=== PATIENT | female | born 1955 | race Caucasian/White ===

== ENCOUNTER 2024-02-05 20:31 | Emergency (ER) | payer MEDICARE, SELFPAY ==
[2024-02-05 20:42] VITALS: BP 208/104
[2024-02-05 21:08] LABS: % Basophils 0.7 % (0-2); % Eosinophils 1.2 % (0-6); % Immature Granulocytes 0.3 % (0-0.5); % Lymphocytes 49.1 % (20.5-51.1); % Neutrophils 39.7 % (42.2-75.2); Absolute Basophils 0.1 10^3/uL (0-0.2); Absolute Eosinophils 0.1 10^3/uL (0-0.7); Absolute Lymphocytes 5.3 10^3/uL (1.2-3.4); Absolute Neutrophils 4.3 10^3/uL (1.4-6.5); Hematocrit 34.8 % (37.0-47.0); Hemoglobin 12.4 g/dL (12.0-16.0); Mean Corp Hgb Conc. 35.6 g/dL (33.0-37.0); Mean Corpuscular Hgb 31.6 pg (27.0-31.0); Mean Corpuscular Volume 88.8 fL (81.0-99.0); Nucleated Red Blood Cells % 0 %; Platelet Count 272 10^3/uL (130-400); Red Blood Cell Count 3.92 10^6/uL (4.20-5.40); Red Cell Dist. Width 12.3 % (11.5-14.5); White Blood Cell Count 10.8 10^3/uL (4.8-10.8)
[2024-02-05 21:28] LABS: ALT (SGPT) 37 U/L (0-35); AST (SGOT) 26 U/L (14-36); Albumin 4.5 g/dl (3.5-5.0); Alkaline Phosphatase 62 U/L (38-126); Blood Urea Nitrogen 20 mg/dl (7-17); Carbon Dioxide 26 mmol/L (22-30); Glucose 105 mg/dl (70-99); Potassium 4.3 mmol/L (3.5-5.1); Sodium 130 mmol/L (135-145); Total Protein 7.5 g/dl (6.3-8.2); eGFR > 60.00
[2024-02-05 21:33] LABS: Troponin I < 0.012 ng/ml
[2024-02-05 21:36] LABS: Chloride 95 mmol/L (98-107); Total Bilirubin 0.8 mg/dl (0.2-1.3)
[2024-02-06 01:59] VITALS: BP 169/92
[2024-02-06 05:41] VITALS: BP 164/81
[2024-02-06] MEDS: LOPRESSOR 75 MG PO (06:49)
--- NOTE | 2024-02-06 06:49 | ED.GENMED ---
History of Present Illness
General
Chief Complaint: Blood Pressure Problem
Source: patient and spouse
Time Seen by Provider: 02/06/24 06:35
Travel History
Have you had any contact with someone who has COVID-19?: No
Do you have any symptoms of coronavirus? Fever > 100 degrees, chills, cough, shortness of breath, sore throat, loss of taste or smell, muscle aches, or headache?: No
History of Present Illness
History of Present Illness:
68-year-old female presents to the emergency room complaining of high blood pressure. Her blood pressure has been elevated over the past couple weeks. Yesterday she took it and it was in the 190s. She believes that he has more sinus congestion
and runny nose when her blood pressure is elevated. She is able to perform her normal daily activities including fairly significant exercise. She denies any chest pain or shortness of breath. Patient is prescribed medication for hypertension
including metoprolol 50 mg in the morning as well as amlodipine 5 mg in the evening.
Phy Exam
Physical Exam
Physical Exam:
General: Awake, Alert, Oriented X3. No acute distress.
Vitals: Moderately hypertensive
Head: Atraumatic
Eyes: Pupils equal, EOMI
Throat: Airway intact, no exudates
Neck: Trachea midline
Lungs: Clear and equal b/l
Heart: Regular rate, no murmurs
Abd: Soft, Nontender, No pulsatile mass
Neuro: Nonfocal
Skin: Warm, dry, no rash
Extremities: pulses equal b/l, no edema
Course
Orders/Labs/Results
Orders:
Orders
02/05/24 20:47
EKG [Electrocardiogram (*1)] Urgent
Reason for Study: Hypertension, Benign
02/05/24 20:48
EKG- Treatment ONCE
02/05/24 21:01
Complete Blood Count/With Diff Urgent
Comprehensive Metabolic Panel Urgent
Troponin I Urgent
02/06/24 06:36
Metoprolol [Lopressor] 75 mg PO NOW STA
02/06/24 07:36
Osmolality, Random Urine Urgent
Date Specimen was Collected: 02/06/24
Time Specimen was Collected: 06:55
Urinalysis Urgent
Date Specimen was Collected: 02/06/24
Time Specimen was Collected: 06:53
Urine Sodium Urgent
Date Specimen was Collected: 02/06/24
Time Specimen was Collected: 06:55
Abnormal Lab Results
02/05/24 02/06/24
21:01 07:36
RBC 3.92 L 10^6/uL
(4.20-5.40)
Hct 34.8 L %
(37.0-47.0)
MCH 31.6 H pg
(27.0-31.0)
Absolute Lymphs (auto) 5.3 H 10^3/uL
(1.2-3.4)
Absolute Monos (auto) 1.0 H 10^3/uL
(0.1-0.6)
Neutrophils % 39.7 L %
(42.2-75.2)
Sodium 130 L mmol/L
(135-145)
Chloride 95 L mmol/L
(98-107)
BUN 20 H mg/dl
(7-17)
Glucose 105 H mg/dl
(70-99)
ALT 37 H U/L
(0-35)
Urine Osmolality 290 L mOsm/kg
(300-900)
02/05/24 21:01
02/05/24 21:01
Vital Signs
Initial and Last Documented VS:
Initial Vital Signs
Temp Pulse Resp BP Pulse Ox
97.7 F 70 16 208/104 99
02/05/24 20:42 02/05/24 20:42 02/05/24 20:42 02/05/24 20:42 02/05/24 20:42
Last Documented Vital Signs
Temp Pulse Resp BP Pulse Ox
97.5 F 65 16 157/90 100
02/06/24 01:59 02/06/24 06:54 02/06/24 06:54 02/06/24 09:07 02/06/24 06:54
MDM/Problems Addressed
Differential Diagnosis Includes:
uncontrolled hypertension, medication side effect, hypertensive emergency
MDM/Problems Addressed:
Patient presents with elevated blood pressure. At the time my evaluation her blood pressure has improved. Labs showed no concerning findings. Her sodium was mildly low at 130 though she endorses increased fluid intake. Patient's elevated blood
pressure may be due to simply progression of essential hypertension. Patient also recently on a course of steroids which may have exacerbated her blood pressure Given workup here is unremarkable we will increase her metoprolol to 75 mg a day.
Patient instructed to take 1-1/2 tablets in the morning and also take her typical dose of amlodipine in the evening. Patient will follow with her primary care doctor and she does have an appointment for this next week. Patient very anxious better
blood pressure and I have also asked her to take her blood pressure only once or perhaps twice a day and no more.
Chronic conditions affecting care: HTN
*Pulse Oximetry
Patient hypoxic: no
*EKG
Interpreted by ED Provider?: Yes
Interpretation: normal
Heart Rate: 72
Rate: normal
Rhythm: sinus
[place]: normal axis
Interval: normal interval
QRS Pattern: normal QRS
Ischemia: no ischemia
*Silverware [employer]er Interpretation
Rate: normal
Interpretation: normal
Rhythm: sinus
*Critical Care Note
Total Time (30-74mins, 75-104mins- exclusive of procedures): Not Applicable
ED Attending Note
-
Portions of this chart may have been created with voice recognition software.� Occasional wrong word or��sound alike� substitutions may have occurred due to the inherent limitations of voice recognition software.
Discharge Plan
Departure
Patient Disposition: Home (Routine Discharge)
Patient with high blood pressure during this ER visit?: Yes
Condition: Good
Discharge Problem:
Hypertension
Instructions: High Blood Pressure (DC)
Prescriptions:
No Action
dicyclomine 20 mg tablet
20 mg PO BID PRN (Reason: abdominal pain) Qty: 20 0RF
Referrals:
Pedro Babcock, DO [Family Provider] -
Activity Restrictions/Additional Instructions:
Increase metoprolol to 75mg in the morning. Follow up with your primary care provider as scheduled. Take you blood pressure once a day.
Interventions
Interventions:
*Risk Screen - Suicide Last Done: 02/05/24 20:42
*General Assessment Last Done: 02/05/24 20:42
*Neglect/Abuse Screening Last Done: 02/06/24 09:17
ED- Fall Risk Assessment Last Done: 02/06/24 05:50
*ED COVID-19 Vaccine History Last Done: 02/05/24 20:42
*Nursing Disposition Last Done: 02/06/24 09:17
ED- Cardiac Assessment Last Done: 02/06/24 05:50
ED- Neurological Assessment Last Done: 02/06/24 05:50
ED- Pulmonary Assessment Last Done: 02/06/24 05:50
Discharge Date and Time
Discharge Date/Time: 02/06/24 09:18
Print Language: DANISH
[2024-02-06 06:54] VITALS: BP 155/80
[2024-02-06 07:43] LABS: Urine Albumin Negative (Neg - Trace); Urine Bilirubin Negative (Negative); Urine Character Clear (Clear); Urine Color Yellow; Urine Glucose Negative (Negative); Urine Ketone Negative (Negative); Urine Leukocyte Negative (Negative); Urine Nitrite Negative (Negative); Urine Occult Blood Negative (Negative); Urine Specific Gravity 1.005 (<1.030); Urine Urobilinogen Negative (Neg - 1+)
[2024-02-06 08:54] LABS: Urine Sodium 87 mmol/L (30-90)
[2024-02-06 09:07] VITALS: BP 157/90
[2024-02-06 09:14] LABS: Osmolality Urine 290 mOsm/kg (300-900)
== END 2024-02-06 09:18 | disposition home or self-care (01) ==
LOC: EMR 20:31
PROVIDERS: Emergency Medicine; EMERGENCY PHYSICIAN Emergency Medicine; FAMILY PHYSICIAN Family Medicine
DX: I10 Essential (primary) hypertension (principal); R09.81 Nasal congestion; R09.89 Other specified symptoms and signs involving the circulatory and respiratory systems
CPT/HCPCS: 99283; 80053; 81003; 83935; 84300; 84484; 85025; 93005

== ENCOUNTER → 2024-04-15 10:37 | Outpatient (REF) | payer MEDICARE, SELFPAY | LOC: HWRCS 10:37 | PROVIDERS: ATTENDING PHYSICIAN Nuclear Medicine Nuclear Cardiology; FAMILY PHYSICIAN Family Medicine | DX: R94.31 Abnormal electrocardiogram [ECG] [EKG] (principal) | CPT/HCPCS: 93306 ==

== ENCOUNTER → 2024-10-08 08:31 | Outpatient (REF) | payer MEDICARE, SELFPAY | LOC: HWWDC 08:31 | PROVIDERS: ATTENDING PHYSICIAN Family Medicine | DX: M81.0 Age-related osteoporosis without current pathological fracture (principal); Z12.31 Encounter for screening mammogram for malignant neoplasm of breast | CPT/HCPCS: 77063; 77067; 77080 ==

== ENCOUNTER → 2024-12-09 08:00 | Outpatient (REF) | payer MEDICARE, SELFPAY ==
[2024-12-09 09:53] LABS: % Basophils 0.8 % (0-2); % Eosinophils 3.2 % (0-6); % Immature Granulocytes 0.2 % (0-0.5); % Monocytes 9.2 % (1.7-9.3); % Neutrophils 46.6 % (42.2-75.2); Absolute Basophils 0.1 10^3/uL (0-0.2); Absolute Eosinophils 0.3 10^3/uL (0-0.7); Absolute Lymphocytes 3.8 10^3/uL (1.2-3.4); Absolute Monocytes 0.9 10^3/uL (0.1-0.6); Absolute Neutrophils 4.4 10^3/uL (1.4-6.5); Mean Corp Hgb Conc. 34.2 g/dL (33.0-37.0); Mean Corpuscular Hgb 32.1 pg (27.0-31.0); Mean Corpuscular Volume 93.8 fL (81.0-99.0); Mean Platelet Volume 10.9 fL (7.4-10.4); Nucleated Red Blood Cells % 0 %; Platelet Count 262 10^3/uL (130-400); Red Blood Cell Count 4.05 10^6/uL (4.20-5.40); Red Cell Dist. Width 12.5 % (11.5-14.5); White Blood Cell Count 9.5 10^3/uL (4.8-10.8)
[2024-12-09 09:57] LABS: ALT (SGPT) 24 U/L (0-35); AST (SGOT) 27 U/L (14-36); Albumin 4.5 g/dl (3.5-5.0); Alkaline Phosphatase 64 U/L (38-126); Blood Urea Nitrogen 17 mg/dl (7-17); Calcium 9.6 mg/dl (8.4-10.2); Carbon Dioxide 26 mmol/L (22-30); Chloride 107 mmol/L (98-107); Glucose 106 mg/dl (70-99); Potassium 4.6 mmol/L (3.5-5.1); Sodium 141 mmol/L (135-145); Total Bilirubin 0.9 mg/dl (0.2-1.3); Total Protein 7.5 g/dl (6.3-8.2); eGFR > 60.00
[2024-12-09 10:12] LABS: IgA 279 mg/dl (70-400)
[2024-12-10 10:26] LABS: Intact PTH 31.1 pg/ml (13.6-85.8)
[2024-12-10 15:47] LABS: Endomysial IgA Antibody Titer <1:10 (<1:10)
[2024-12-10 18:19] LABS: tTG IgA Antibody <1.02 FLU (0.00-4.99)
[2024-12-11 09:30] LABS: Albumin 4.19 g/dL (3.75-5.01); Alpha 1 Globulin 0.23 g/dL (0.19-0.46); Alpha 2 Globulin 0.76 g/dL (0.48-1.05); SPEP IFE Reflex Not Done; Total Protein-Electrophoresis 7.3 g/dL (6.3-8.2)
== END ==
LOC: HWLAB 08:00
PROVIDERS: ATTENDING PHYSICIAN Student in an Organized Health Care Education/Training Program; FAMILY PHYSICIAN Family Medicine
DX: M81.0 Age-related osteoporosis without current pathological fracture (principal); I10 Essential (primary) hypertension
CPT/HCPCS: 36415; 80053; 82784; 83516; 83970; 84155; 84165; 85025; 86231

== ENCOUNTER → 2024-12-26 07:52 | Outpatient (REF) | payer MEDICARE, SELFPAY ==
[2024-12-26 09:51] LABS: % Basophils 0.5 % (0-2); % Immature Granulocytes 0.1 % (0-0.5); % Lymphocytes 44.2 % (20.5-51.1); % Monocytes 9.2 % (1.7-9.3); Absolute Eosinophils 0.2 10^3/uL (0-0.7); Absolute Lymphocytes 3.6 10^3/uL (1.2-3.4); Absolute Monocytes 0.7 10^3/uL (0.1-0.6); Absolute Neutrophils 3.5 10^3/uL (1.4-6.5); Hematocrit 37.9 % (37.0-47.0); Hemoglobin 13.1 g/dL (12.0-16.0); Mean Corp Hgb Conc. 34.6 g/dL (33.0-37.0); Mean Corpuscular Hgb 32.2 pg (27.0-31.0); Mean Corpuscular Volume 93.1 fL (81.0-99.0); Nucleated Red Blood Cells % 0 %; Platelet Count 238 10^3/uL (130-400); Red Blood Cell Count 4.07 10^6/uL (4.20-5.40); Red Cell Dist. Width 12.7 % (11.5-14.5); White Blood Cell Count 8.1 10^3/uL (4.8-10.8)
[2024-12-26 11:37] LABS: ALT (SGPT) 22 U/L (0-35); AST (SGOT) 27 U/L (14-36); Albumin 4.3 g/dl (3.5-5.0); Alkaline Phosphatase 53 U/L (38-126); Blood Urea Nitrogen 17 mg/dl (7-17); Calcium 9.2 mg/dl (8.4-10.2); Carbon Dioxide 26 mmol/L (22-30); Chloride 106 mmol/L (98-107); Glucose 86 mg/dl (70-99); Potassium 4.8 mmol/L (3.5-5.1); Sodium 142 mmol/L (135-145); Total Bilirubin 1.3 mg/dl (0.2-1.3); Total Protein 7.5 g/dl (6.3-8.2); eGFR > 60.00
== END ==
LOC: HWLAB 07:52
PROVIDERS: ATTENDING PHYSICIAN Student in an Organized Health Care Education/Training Program; FAMILY PHYSICIAN Family Medicine
DX: M81.0 Age-related osteoporosis without current pathological fracture (principal); I10 Essential (primary) hypertension
CPT/HCPCS: 36415; 80053; 85025

== ENCOUNTER → 2025-07-08 06:38 | Outpatient (REF) | payer MEDICARE, SELFPAY ==
[2025-07-08 10:42] LABS: Hematocrit 37.5 % (37.0-47.0); Hemoglobin 12.9 g/dL (12.0-16.0); Mean Corp Hgb Conc. 34.4 g/dL (33.0-37.0); Mean Corpuscular Volume 93.8 fL (81.0-99.0); Platelet Count 249 10^3/uL (130-400); Red Cell Dist. Width 12.4 % (11.5-14.5)
[2025-07-08 10:44] LABS: ALT (SGPT) 25 U/L (0-35); AST (SGOT) 27 U/L (14-36); Albumin 4.4 g/dl (3.5-5.0); Alkaline Phosphatase 53 U/L (38-126); Blood Urea Nitrogen 21 mg/dl (7-17); Calcium 8.9 mg/dl (8.4-10.2); Carbon Dioxide 27 mmol/L (22-30); Chloride 103 mmol/L (98-107); Glucose 93 mg/dl (70-99); Potassium 4.4 mmol/L (3.5-5.1); Sodium 138 mmol/L (135-145); Total Protein 7.5 g/dl (6.3-8.2); eGFR > 60.00
[2025-07-08 12:34] LABS: Absolute Neutrophils -Man Diff 2.7 10^3/uL (1.4-6.5)
[2025-07-08 12:35] LABS: Normal RBC Morphology Yes; Platelets Checked Yes; Total Cells Counted 100
== END ==
LOC: HWLAB 06:38
PROVIDERS: ATTENDING PHYSICIAN Student in an Organized Health Care Education/Training Program; FAMILY PHYSICIAN Internal Medicine
DX: M81.0 Age-related osteoporosis without current pathological fracture (principal); I10 Essential (primary) hypertension
CPT/HCPCS: 36415; 80053; 85025

== ENCOUNTER → 2025-08-20 07:31 | Outpatient (REF) | payer MEDICARE, SELFPAY ==
[2025-08-20 10:42] LABS: Vitamin D, 25-OH*** 105 ng/mL (30-80)
[2025-08-20 10:56] LABS: TSH 3.68 uIU/ml (0.47-4.68)
[2025-08-20 11:07] LABS: HDL Cholesterol 69 mg/dl; LDL Cholesterol, Calculated 96 mg/dl; Very Low Density Lipoprotein 17 mg/dl (0-30)
== END ==
LOC: REG 07:31
PROVIDERS: ATTENDING PHYSICIAN Internal Medicine
DX: E78.5 Hyperlipidemia, unspecified (principal); M81.0 Age-related osteoporosis without current pathological fracture
CPT/HCPCS: 36415; 80061; 82306; 84443